=== PATIENT | female | born 1940 | race African-American/Black ===

== ENCOUNTER 2022-06-04 11:07 | Inpatient (IN) | payer MEDICARE, MEDICAID ==
[~2022-06-04] VITALS: Ht 149.9 cm; Wt 47.6 kg
[2022-06-04 13:39] LABS: BASOPHILS % 0.7 % (0.0-2.0); EOSINOPHILS % 2.2 % (0.0-5.0); HEMATOCRIT. 36.7 % (36.0-48.0); LYMPHOCYTES % 37.5 % (20.0-50.0); MEAN CORPUSCULAR HEMOGLOBIN 25.9 pg (28.0-32.0); MEAN CORPUSCULAR VOLUME 79.3 fL (81.0-99.0); MEAN PLATELET VOLUME 7.1 fl (7.4-10.4); MONOCYTES % 4.6 % (2.0-8.0); PLATELET 342 x1000/uL (130-400); RED BLOOD CELL COUNT 4.63 mill/uL (4.2-5.4); RED CELL DISTRIBUTION WIDTH 15.2 % (11.6-14.6)
[2022-06-04 13:49] LABS: CHLORIDE 102 mEq/L (98-107)
[2022-06-04] MEDS ORDERED: ASPIRIN 325MG EC TABLET PO ONE (16:15)
[2022-06-04] MEDS ORDERED: QUETIAPINE FUMARATE 50MG TABLET PO NR (21:15)
[2022-06-04] MEDS ORDERED: DEXTROSE 50% WATER 50ML SYRINGE IV PRN (21:15)
[2022-06-04] MEDS: LORAZEPAM 2MG/ML CPJ IV PRN (21:34)
[2022-06-04] MEDS: BLOOD SUGAR DIAGNOSTIC STRIP TEST SCH (22:20)
[2022-06-04] MEDS: INSULIN LISPRO 100 UNITS/ML SUBCUT SCH (22:41)
[2022-06-05 02:10] VITALS: BP 156/66
[2022-06-05] MEDS ORDERED: METF-414 PO (03:06)
[2022-06-05] MEDS ORDERED: ATOR-2 PO (03:06)
[2022-06-05] MEDS ORDERED: CARI350T27 PO (03:06)
[2022-06-05] MEDS ORDERED: INSU100I28 SUBCUT (03:06)
[2022-06-05] MEDS ORDERED: LOSA25TA26 PO (03:06)
[2022-06-05 04:00] VITALS: BP 131/77
[2022-06-05] MEDS: BLOOD SUGAR DIAGNOSTIC STRIP TEST SCH ×4 (06:56→20:09)
[2022-06-05 08:00] VITALS: BP 130/75
[2022-06-05] MEDS: LOSARTAN POTASSIUM 25 MG TABLET PO SCH (08:12)
[2022-06-05] MEDS: INSULIN LISPRO 100 UNITS/ML SUBCUT SCH ×4 (08:17→20:10)
[2022-06-05] MEDS: LORAZEPAM 2MG/ML CPJ IV PRN ×3 (09:34→20:57)
[2022-06-05 12:00] VITALS: BP 128/69
[2022-06-05 16:00] VITALS: BP 134/74
[2022-06-05] MEDS: METFORMIN HCL 500MG TABLET PO SCH (17:50)
[2022-06-05 20:00] VITALS: BP 141/80
[2022-06-05] MEDS: ATORVASTATIN CALCIUM 40MG TABLET PO SCH (20:08)
[2022-06-05] MEDS: RISPERIDONE 1MG TABLET PO SCH (20:08)
[2022-06-05] MEDS ORDERED: INFLUENZA VACCINE 05/PF 0.5 ML SYRINGE IM ONE (21:00)
[2022-06-05] MEDS ORDERED: PNEUMOCOCCAL 23-VAL P-SAC VAC 0.5 ML IM ONE (21:00)
[2022-06-05] MEDS: INSULIN GLARGINE 100 UNITS/ML SUBCUT SCH (21:52)
[2022-06-05] MEDS ORDERED: INSULIN GLARGINE 100 UNITS/ML SUBCUT SCH (22:00)
[2022-06-06] VITALS: BP 132/84
[2022-06-06] MEDS: LORAZEPAM 2MG/ML CPJ IV PRN ×3 (03:14→18:14)
[2022-06-06 04:00] VITALS: BP 139/75
[2022-06-06] MEDS: BLOOD SUGAR DIAGNOSTIC STRIP TEST SCH ×4 (05:26→20:32)
[2022-06-06] MEDS: INSULIN LISPRO 100 UNITS/ML SUBCUT SCH ×4 (07:55→20:32)
[2022-06-06 08:00] VITALS: BP 135/83
[2022-06-06 08:20] LABS: VITAMIN B12 SERUM 823 pg/mL (211-911)
[2022-06-06] MEDS: RISPERIDONE 1MG TABLET PO SCH ×2 (09:29→20:32)
[2022-06-06] MEDS: METFORMIN HCL 500MG TABLET PO SCH ×2 (09:29→18:15)
[2022-06-06] MEDS: LOSARTAN POTASSIUM 25 MG TABLET PO SCH (09:29)
[2022-06-06 12:00] VITALS: BP 128/81
[2022-06-06 16:00] VITALS: BP 133/61
[2022-06-06 20:00] VITALS: BP 121/62
[2022-06-06] MEDS: ATORVASTATIN CALCIUM 40MG TABLET PO SCH (20:32)
[2022-06-06] MEDS: INSULIN GLARGINE 100 UNITS/ML SUBCUT SCH (22:02)
[2022-06-07] VITALS: BP 111/63
[2022-06-07 04:00] VITALS: BP 98/58
[2022-06-07] MEDS: LORAZEPAM 2MG/ML CPJ IV PRN ×3 (05:00→14:46)
[2022-06-07] MEDS: BLOOD SUGAR DIAGNOSTIC STRIP TEST SCH ×4 (05:45→21:47)
[2022-06-07 08:00] VITALS: BP 110/64
[2022-06-07] MEDS: INSULIN LISPRO 100 UNITS/ML SUBCUT SCH ×4 (08:10→21:00)
[2022-06-07] MEDS: METFORMIN HCL 500MG TABLET PO SCH ×2 (08:10→18:10)
[2022-06-07] MEDS: RISPERIDONE 1MG TABLET PO SCH ×2 (10:08→21:48)
[2022-06-07] MEDS: LOSARTAN POTASSIUM 25 MG TABLET PO SCH (10:08)
[2022-06-07 12:00] VITALS: BP 82/54
[2022-06-07 16:00] VITALS: BP 125/69
[2022-06-07 20:00] VITALS: BP 136/82
[2022-06-07] MEDS: ATORVASTATIN CALCIUM 40MG TABLET PO SCH (21:47)
[2022-06-07] MEDS: INSULIN GLARGINE 100 UNITS/ML SUBCUT SCH (21:47)
[2022-06-07] MEDS: MEMANTINE HCL 5MG TABLET PO SCH (21:48)
[2022-06-08] VITALS: BP 159/82
[2022-06-08 04:00] VITALS: BP 115/74
[2022-06-08] MEDS: LORAZEPAM 2MG/ML CPJ IV PRN (05:47)
[2022-06-08] MEDS: BLOOD SUGAR DIAGNOSTIC STRIP TEST SCH ×4 (05:48→19:53)
[2022-06-08] MEDS: INSULIN LISPRO 100 UNITS/ML SUBCUT SCH ×4 (05:48→19:53)
[2022-06-08 08:00] VITALS: BP 108/69
[2022-06-08] MEDS: LOSARTAN POTASSIUM 25 MG TABLET PO SCH (09:19)
[2022-06-08] MEDS: MEMANTINE HCL 5MG TABLET PO SCH ×2 (09:19→19:45)
[2022-06-08] MEDS: METFORMIN HCL 500MG TABLET PO SCH ×2 (09:19→17:51)
[2022-06-08] MEDS: RISPERIDONE 1MG TABLET PO SCH ×2 (09:19→19:45)
[2022-06-08 12:00] VITALS: BP 99/66
[2022-06-08 16:00] VITALS: BP 82/46
[2022-06-08] MEDS: ATORVASTATIN CALCIUM 40MG TABLET PO SCH (19:45)
[2022-06-08] MEDS: INSULIN GLARGINE 100 UNITS/ML SUBCUT SCH (19:54)
[2022-06-08 20:00] VITALS: BP 102/78
[2022-06-09] VITALS: BP 107/54
[2022-06-09 04:00] VITALS: BP 110/54
[2022-06-09] MEDS: BLOOD SUGAR DIAGNOSTIC STRIP TEST SCH ×4 (05:29→20:40)
[2022-06-09] MEDS: INSULIN LISPRO 100 UNITS/ML SUBCUT SCH ×4 (05:52→20:40)
[2022-06-09 08:00] VITALS: BP 108/58
[2022-06-09] MEDS: LOSARTAN POTASSIUM 25 MG TABLET PO SCH (10:21)
[2022-06-09] MEDS: MEMANTINE HCL 5MG TABLET PO SCH ×2 (10:21→20:40)
[2022-06-09] MEDS: RISPERIDONE 1MG TABLET PO SCH ×2 (10:21→20:40)
[2022-06-09] MEDS: METFORMIN HCL 500MG TABLET PO SCH ×2 (10:21→16:49)
[2022-06-09 12:16] VITALS: BP 96/58
[2022-06-09 16:00] VITALS: BP 106/58
[2022-06-09 20:00] VITALS: BP 99/37
[2022-06-09] MEDS: ATORVASTATIN CALCIUM 40MG TABLET PO SCH (20:40)
[2022-06-09] MEDS: INSULIN GLARGINE 100 UNITS/ML SUBCUT SCH (22:00)
[2022-06-10] VITALS: BP 94/55
[2022-06-10 04:00] VITALS: BP 98/69
[2022-06-10] MEDS: BLOOD SUGAR DIAGNOSTIC STRIP TEST SCH ×4 (06:46→21:45)
[2022-06-10 08:00] VITALS: BP 117/69
[2022-06-10] MEDS: INSULIN LISPRO 100 UNITS/ML SUBCUT SCH ×4 (08:10→21:00)
[2022-06-10] MEDS: LOSARTAN POTASSIUM 25 MG TABLET PO SCH (09:14)
[2022-06-10] MEDS: MEMANTINE HCL 5MG TABLET PO SCH ×2 (09:14→21:45)
[2022-06-10] MEDS: METFORMIN HCL 500MG TABLET PO SCH ×2 (09:14→18:21)
[2022-06-10] MEDS: RISPERIDONE 1MG TABLET PO SCH ×2 (09:14→21:45)
[2022-06-10 12:00] VITALS: BP 136/53
[2022-06-10 16:00] VITALS: BP 150/70
[2022-06-10 20:00] VITALS: BP 123/69
[2022-06-10] MEDS: ATORVASTATIN CALCIUM 40MG TABLET PO SCH (21:45)
[2022-06-10] MEDS: INSULIN GLARGINE 100 UNITS/ML SUBCUT SCH (21:46)
[2022-06-11] VITALS: BP 107/60
[2022-06-11 04:00] VITALS: BP 121/69
[2022-06-11] MEDS: BLOOD SUGAR DIAGNOSTIC STRIP TEST SCH ×4 (07:40→21:13)
[2022-06-11 08:00] VITALS: BP 101/60
[2022-06-11] MEDS: INSULIN LISPRO 100 UNITS/ML SUBCUT SCH ×4 (08:10→21:00)
[2022-06-11] MEDS: METFORMIN HCL 500MG TABLET PO SCH ×2 (08:11→17:48)
[2022-06-11] MEDS: LOSARTAN POTASSIUM 25 MG TABLET PO SCH (08:11)
[2022-06-11] MEDS: RISPERIDONE 1MG TABLET PO SCH ×2 (08:11→21:13)
[2022-06-11] MEDS: MEMANTINE HCL 5MG TABLET PO SCH ×2 (08:11→21:13)
[2022-06-11 12:00] VITALS: BP 108/64
[2022-06-11 16:00] VITALS: BP 138/73
[2022-06-11 20:00] VITALS: BP 115/70
[2022-06-11] MEDS: ATORVASTATIN CALCIUM 40MG TABLET PO SCH (21:13)
[2022-06-11] MEDS: INSULIN GLARGINE 100 UNITS/ML SUBCUT SCH (22:06)
[2022-06-12] VITALS: BP 134/72
[2022-06-12 04:00] VITALS: BP 126/76
[2022-06-12] MEDS: INSULIN LISPRO 100 UNITS/ML SUBCUT SCH ×4 (05:46→20:06)
[2022-06-12] MEDS: BLOOD SUGAR DIAGNOSTIC STRIP TEST SCH ×4 (05:46→20:06)
[2022-06-12 08:00] VITALS: BP 138/68
[2022-06-12] MEDS: MEMANTINE HCL 5MG TABLET PO SCH ×2 (08:51→20:27)
[2022-06-12] MEDS: METFORMIN HCL 500MG TABLET PO SCH ×2 (08:51→18:10)
[2022-06-12] MEDS: LOSARTAN POTASSIUM 25 MG TABLET PO SCH (08:51)
[2022-06-12] MEDS: RISPERIDONE 1MG TABLET PO SCH ×2 (08:51→20:27)
[2022-06-12 12:00] VITALS: BP 138/83
[2022-06-12 16:00] VITALS: BP 148/79
[2022-06-12 20:00] VITALS: BP 147/68
[2022-06-12] MEDS: ATORVASTATIN CALCIUM 40MG TABLET PO SCH (20:27)
[2022-06-12] MEDS: INSULIN GLARGINE 100 UNITS/ML SUBCUT SCH (21:09)
[2022-06-13] VITALS: BP 112/72
[2022-06-13 04:00] VITALS: BP 102/72
[2022-06-13] MEDS: BLOOD SUGAR DIAGNOSTIC STRIP TEST SCH ×2 (06:41→12:40)
[2022-06-13 08:00] VITALS: BP 121/73
[2022-06-13] MEDS: INSULIN LISPRO 100 UNITS/ML SUBCUT SCH ×2 (08:10→13:10)
[2022-06-13] MEDS: LOSARTAN POTASSIUM 25 MG TABLET PO SCH (08:53)
[2022-06-13] MEDS: RISPERIDONE 1MG TABLET PO SCH (08:53)
[2022-06-13] MEDS: MEMANTINE HCL 5MG TABLET PO SCH (08:54)
[2022-06-13] MEDS: METFORMIN HCL 500MG TABLET PO SCH (08:55)
[2022-06-13 12:00] VITALS: BP 122/85
[2022-06-13 13:54] VITALS: BP 122/85
== END 2022-06-13 14:45 | DRG 638 ==
LOC: ER 11:07 → MICUSO 17:12 → EDBEDREQ 17:16 → 7WST 06-05 02:12
PROVIDERS: ADMIT Internal Medicine; ATTEND Internal Medicine
PROC: 4A00X4Z Measurement of Central Nervous Electrical Activity, External Approach (ICD-10-PCS; principal; 2022-06-06)
DX: E11.65 Type 2 diabetes mellitus with hyperglycemia (principal); F03.92 Unspecified dementia, unspecified severity, with psychotic disturbance; R62.7 Adult failure to thrive; I10 Essential (primary) hypertension; E78.00 Pure hypercholesterolemia, unspecified; J45.909 Unspecified asthma, uncomplicated; Z91.119 Patient's noncompliance with dietary regimen due to unspecified reason; Z68.21 Body mass index [BMI] 21.0-21.9, adult; Z83.3 Family history of diabetes mellitus; W01.0XXA Fall on same level from slipping, tripping and stumbling without subsequent striking against object, initial encounter; Y92.009 Unspecified place in unspecified non-institutional (private) residence as the place of occurrence of the external cause; Y93.89 Activity, other specified; Y99.8 Other external cause status
CPT/HCPCS: 36415; 71045; 73030; 73080; 80053; 82607; 82962; 83880; 84443; 84484; 85025; 90686; 90732; 93005; 95816; 97116; 97162; 99285; A6261; J1815; J2060